=== PATIENT | male | born 1975 ===

== ENCOUNTER 2019-05-06 16:50 | Inpatient (IN) | payer BC, OTHER ==
[~2019-05-06] VITALS: Ht 182.9 cm; Wt 76.9 kg
[~2019-05-06 16:50] MED LIST: ETOMIDATE 40 MG/20 ML ONE; MIDAZOLAM 1 MG/ML, 5ML ONE; PROPOFOL 10 MG/ML, 100ML IV ONE; PROPOFOL 10 MG/ML, 20ML ONE; SUCCINYLCHOLINE 20 MG/ML, 10ML ONE; VECURONIUM 10 MG ONE
--- NOTE | 2019-05-06 17:00 | NUR ---
BIBA RESTRAINED X4 C/O AMS, AOX0- WILL NOT ANSWER STAFF QUESTIONS, WITHIN A FEW MINUTES OF ARRIVAL PT WENT FROM DROWSY & FOLLOWING SOME COMMANDS TO AGITATED, RESTLESS, UNCOOPERATIVE/COMBATIVE & PULLING AT RESTRAINTS BACK TO SLEEPING; PT CHANGED INTO GOWN, ALL PERSONAL BELONGINGS PLACED IN BAG X1 & PLACED IN LOCKER WITH PT COOLER (HANDLE BROKEN), SAFETY FREEMAN DOWN, SITTER IN VIEW. Addendum: 05/06/19 at 1731 by HAKAN BIBA RESTRAINED X4 C/O AMS, AOX0- WILL NOT ANSWER STAFF QUESTIONS, WITHIN A FEW MINUTES OF ARRIVAL PT WENT FROM DROWSY & FOLLOWING SOME COMMANDS TO AGITATED, RESTLESS, UNCOOPERATIVE/COMBATIVE & PULLING AT RESTRAINTS BACK TO SLEEPING; BG 74 SYNOPTIC METEOROLOGIST PER EMS, NO OTHER INTERVENTIONS, EMS REPORTS PT FOUND "IN THE MIDDLE OF THE FREEWAY PUNCHING A FENCE", PT DENIES DRUG/ETOH USE; PT CHANGED INTO GOWN, ALL PERSONAL BELONGINGS PLACED IN BAG X1 & PLACED IN LOCKER WITH PT COOLER (HANDLE BROKEN), SAFETY FREEMAN DOWN, SITTER IN VIEW.
[2019-05-06] MEDS ORDERED: SODIUM CHLORIDE FLUSH 10ML SYR IVF ONE (17:30)
[2019-05-06] MEDS ORDERED: LORazepam 2 MG/ML, 1ML IM ONE (17:30)
[2019-05-06] MEDS ORDERED: LORazepam 2 MG/ML, 1ML ONE (17:40)
--- NOTE | 2019-05-06 18:01 | NUR ---
PT REMAINS RESTRAINED X4, REPEATEDLY YELLING "FUCK" & WILL NOT ANSWER STAFF QUESTIONS, THRASHING ON GURNEY& UNABLE TO COMPREHEND COMMANDS FROM STAFF, PT CONTINUES TO GO FROM BEING DROWSY TO WIDE AWAKE & AGITATED, RESTLESS, UNCOOPERATIVE/COMBATIVE, PULLING AT RESTRAINTS THEN BACK TO SLEEPING- ERP AWARE; PT REMAINS IN SAFE ENVIRONMENT, SITTER IN VIEW. [facility].
[2019-05-06 18:06] LABS: ALBUMIN 4.8 g/dL (3.4-5.0); ANION GAP 10 mmol/L (5-15); BASOPHILS # (AUTO) 0.05 x10^3/uL (0-0.1); BASOPHILS % (AUTO) 0 % (0-1); CALCIUM 9.9 mg/dL (8.5-10.1); CHLORIDE 113 mmol/L (98-107); EOSINOPHILS # (AUTO) 0.05 x10^3/uL (0-0.4); EOSINOPHILS % (AUTO) 0 % (1-7); LYMPHOCYTES % (AUTO) 13 % (22-44); MD NO; MEAN CORPUSCULAR HEMOGLOBIN 31.5 pg (27.5-34.5); MEAN CORPUSCULAR HGB CONC 33.3 g/dL (33.2-36.2); MEAN CORPUSCULAR VOLUME 94.6 fL (81-97); MEAN PLATELET VOLUME 8.8 fL (7.4-10.4); MONOCYTES # (AUTO) 0.77 x10^3/uL (0.2-0.8); MONOCYTES % (AUTO) 6 % (2-9); NEUTROPHILS # (AUTO) 10.99 x10^3/uL (1.8-6.8); NEUTROPHILS % (AUTO) 81 % (42-75); PLATELET COUNT 225 x10^3/uL (130-400); RED BLOOD COUNT 5.02 x10^6/uL (4.38-5.82); RED CELL DISTRIBUTION WIDTH 12.3 % (9.4-14.8)
[2019-05-06 18:21] LABS: ALANINE AMINOTRANSFERASE 33 U/L (12-78); ALKALINE PHOSPHATASE 102 U/L (45-117); BILIRUBIN,TOTAL 0.6 mg/dL (0.2-1.0); CREATINE KINASE, TOTAL 2413 U/L (39-308); CREATININE 1.12 mg/dL (0.7-1.3); SALICYLATE LEVEL 5.1 mg/dL (2.8-20.0); TOTAL PROTEIN 7.6 g/dL (6.4-8.2)
[2019-05-06] MEDS ORDERED: MIDAZOLAM 1 MG/ML, 2ML ONE ×3 (18:26→22:57)
[2019-05-06] MEDS ORDERED: PLEASE ENTER ALLERGIES MC SCH (18:30)
[2019-05-06] MEDS ORDERED: MIDAZOLAM 1 MG/ML, 5ML IM ONE ×2 (18:30→20:30)
--- NOTE | 2019-05-06 19:08 | NUR ---
REPORT GIVEN TO DELMY
[2019-05-06] MEDS ORDERED: HALOPERIDOL 5 MG/ML ONE (19:58)
[2019-05-06] MEDS ORDERED: HALOPERIDOL 5 MG/ML IM ONE (20:00)
--- NOTE | 2019-05-06 20:15 | NUR ---
atepted to transfer pt to ct scan table for scan, pt awoke and was combative with staff and altered. security, ct staff and show card writer had to hold pt down and transfer pt to [facility] and restrain pt for staff saftey and pt saftet. pt contined to fight with staff and restraints until im meds finally took affect. pt was transfered to trauma bed 3 increased monitoring and 03/13 nursing
--- NOTE | 2019-05-06 20:25 | NUR ---
RECEIVED REPORT FROM DELMY MAHARAJ, ASSUMING CARE OF PT NOW. CONNECTED TO ALL MONITORING. PT CONINUTES TO BE IN 4 PT LEATHER RESTRAINTS AT THIS TIME. PLAN IS TO INTUBATE PT. WILL CONTINUE TO MONITOR. AWAITING FURTHER ORDERS AT THIS TIME
--- NOTE | 2019-05-06 20:32 | NUR ---
CT DELAY, PT UNCOOPERATIVE.
--- NOTE | 2019-05-06 20:52 | NUR ---
PT INTUBATED AT THIS TIME
[2019-05-06] MEDS ORDERED: PROPOFOL 100 ML IV PRN (21:04)
[2019-05-06] MEDS ORDERED: ETOMIDATE 20 MG/10 ML IV ONE (21:30)
[2019-05-06] MEDS ORDERED: SUCCINYLCHOLINE 20 MG/ML, 10ML IVPush ONE (21:30)
--- NOTE | 2019-05-06 21:39 | NUR ---
PT INTUBATED, TOLERATED WELL. UREÑA INSERTED, OG PLACED TO LOW INTERMITTENT SUC. UA COLLECTED AND SENT TO LAB. MEDICAL WRIST RESTRAINTS APPLIED. VSS AT THIS TIME. AWAITING CT
[2019-05-06 21:59] LABS: AMPHETAMINE SCREEN, URINE Negative (Negative); BARBITURATE SCREEN, URINE Negative (Negative); BENZODIAZEPINE SCREEN, URINE Positive (Negative); CANNABINOID SCREEN, URINE Positive (Negative); COCAINE SCREEN, URINE Negative (Negative); METHADONE SCREEN, URINE Negative (Negative); OPIATE SCREEN, URINE Negative (Negative)
--- NOTE | 2019-05-06 22:21 | NUR ---
UPOON LEAVING FOR CT PT BECAME VERY AGGITATED, ATTEMPTING TO PULL OUT ET TUBE. MD TO BEDSIDE, VERBAL ORDERS RECEIVED TO SEDATE. RT ACCOMPANIED TO CT. PT TOLERATED CT WELL. VSS. CURRENTLY BACK IN ROOM. WILL CONTINUE TO MONITOR
[2019-05-06] MEDS ORDERED: MIDAZOLAM 1 MG/ML, 2ML IVPush ONE (22:30)
[2019-05-06] MEDS ORDERED: VECURONIUM 10 MG IVPush ONE (22:30)
--- NOTE | 2019-05-06 22:40 | NUR ---
REPORT CALLED TO RHINA RN, PT READY FOR TRANSPORT WHEN ORDERS IN
[2019-05-06] MEDS ORDERED: HYDROmorphone 1 MG/ML, 1ML INJ IV STA (22:56)
[2019-05-06] MEDS ORDERED: HYDROmorphone 1 MG/ML, 1ML INJ ONE (22:58)
[2019-05-06] MEDS ORDERED: ACETAMINOPHEN 325 MG TABLET PO PRN (23:00)
[2019-05-06] MEDS ORDERED: LACTATED RINGERS 1,000 ML IV SCH (23:00)
[2019-05-06] MEDS ORDERED: ENOXAPARIN 40 MG/0.4 ML SQ SCH (23:00)
[2019-05-06] MEDS ORDERED: ONDANSETRON 2MG/ML, 2ML IVPush PRN (23:00)
[2019-05-06] MEDS ORDERED: MIDAZOLAM 1 MG/ML, 5ML IVPush ONE (23:00)
[2019-05-06 23:31] LABS: INTERNATIONAL NORMALIZED RATIO 0.92 (0.93-1.1); PROTHROMBIN TIME 9.7 Seconds (9.6-11.5)
[2019-05-06 23:43] LABS: FREE T4 (FREE THYROXINE) 1.31 ng/dL (0.76-1.46)
[2019-05-07] MEDS: NICOTINE 21 MG/24 HR PATCH.TD24 TD SCH (00:23)
[2019-05-07] MEDS ORDERED: LACTULOSE 20 GM/30 ML UDC NG PRN (00:30)
[2019-05-07] MEDS ORDERED: DEXTROSE 4 GM TAB.CHEW PO PRN (00:30)
[2019-05-07] MEDS ORDERED: SENNA 176 MG/5 ML ORAL SOL NG PRN (00:30)
[2019-05-07] MEDS: HEPARIN 5,000 UNITS/ML, 1ML SQ SCH ×2 (00:30→02:30)
[2019-05-07] MEDS ORDERED: DEXTROSE 50%, 50ML SYRINGE IVPush PRN (00:30)
[2019-05-07] MEDS ORDERED: GLUCAGON 1 MG IM PRN (00:30)
[2019-05-07] MEDS ORDERED: PROPOFOL 100 ML IV PRN (00:30)
[2019-05-07] MEDS ORDERED: LIDOCAINE-MPF 1%, 2ML ENDO PRN (00:30)
[2019-05-07] MEDS ORDERED: SENNA/DOCUSATE TABLET NG PRN (00:30)
[2019-05-07] MEDS ORDERED: BISACODYL 10 MG SUPP PR PRN (00:30)
[2019-05-07] MEDS ORDERED: ALBUTEROL/IPRATROPIUM 2.5MG/0.5MG, 3 ML INLINE SCH (00:30)
[2019-05-07] MEDS ORDERED: FENTANYL PF 100 MCG/2ML IVPush PRN (00:30)
[2019-05-07] MEDS ORDERED: PHARMACY MAY ADJ FOR RENAL FX MC SCH (00:30)
[2019-05-07] MEDS: PROPOFOL 100 ML IV PRN ×6 (01:25→22:17)
[2019-05-07 01:29] LABS: INTERNATIONAL NORMALIZED RATIO 0.93 (0.93-1.1); PROTHROMBIN TIME 9.8 Seconds (9.6-11.5)
[2019-05-07 01:31] LABS: SALICYLATE LEVEL 5.5 mg/dL (2.8-20.0); TRIGLYCERIDES 115 mg/dL (50-200)
[2019-05-07 01:37] LABS: TROPONIN I < 0.015 ng/mL (0.000-0.045)
[2019-05-07 03:20] LABS: MICROSCOPIC AUTO
[2019-05-07 03:22] LABS: CULTURE INDICATED? NO
[2019-05-07] MEDS: DEXMEDETOMIDINE 200 MCG in SODIUM CHLORIDE 0.9% 48 ML IV PRN ×4 (03:25→16:52)
[2019-05-07 04:00] VITALS: BP 123/79
[2019-05-07 04:34] LABS: BASOPHILS # (AUTO) 0.06 x10^3/uL (0-0.1); BASOPHILS % (AUTO) 1 % (0-1); EOSINOPHILS # (AUTO) 0.06 x10^3/uL (0-0.4); EOSINOPHILS % (AUTO) 1 % (1-7); LYMPHOCYTES # (AUTO) 2.21 x10^3/uL (1-3.4); LYMPHOCYTES % (AUTO) 18 % (22-44); MD NO; MEAN CORPUSCULAR HEMOGLOBIN 31.1 pg (27.5-34.5); MEAN CORPUSCULAR HGB CONC 32.9 g/dL (33.2-36.2); MEAN CORPUSCULAR VOLUME 94.6 fL (81-97); MEAN PLATELET VOLUME 9.1 fL (7.4-10.4); MONOCYTES # (AUTO) 1.08 x10^3/uL (0.2-0.8); MONOCYTES % (AUTO) 9 % (2-9); NEUTROPHILS # (AUTO) 9.06 x10^3/uL (1.8-6.8); NEUTROPHILS % (AUTO) 73 % (42-75); PLATELET COUNT 212 x10^3/uL (130-400); RED BLOOD COUNT 5.12 x10^6/uL (4.38-5.82); RED CELL DISTRIBUTION WIDTH 12.8 % (9.4-14.8)
[2019-05-07 04:44] LABS: ALBUMIN 4.2 g/dL (3.4-5.0); ANION GAP 12 mmol/L (5-15); CALCIUM 8.8 mg/dL (8.5-10.1); CHLORIDE 113 mmol/L (98-107)
[2019-05-07 05:14] LABS: ALANINE AMINOTRANSFERASE 43 U/L (12-78); ALKALINE PHOSPHATASE 100 U/L (45-117); BILIRUBIN,TOTAL 0.4 mg/dL (0.2-1.0); CREATINE KINASE, TOTAL 8629 U/L (39-308); CREATININE 1.04 mg/dL (0.7-1.3); TOTAL PROTEIN 7.2 g/dL (6.4-8.2)
[2019-05-07 07:00] LABS: TROPONIN I < 0.015 ng/mL (0.000-0.045)
[2019-05-07] MEDS ORDERED: INSULIN LISPRO 100 UNITS/ML, PEN SQ-INSULIN SCH (07:00)
[2019-05-07] MEDS: D5%-0.9% NACL 1,000 ML IV SCH (10:14)
[2019-05-07] MEDS: SODIUM CHLORIDE FLUSH 10ML SYR IVF SCH ×2 (10:15→21:05)
[2019-05-07] MEDS: FAMOTIDINE 20 MG/2 ML IVPush SCH ×2 (10:41→21:05)
[2019-05-07] MEDS: ALBUTEROL/IPRATROPIUM 2.5MG/0.5MG, 3 ML INLINE SCH ×4 (11:00→22:47)
[2019-05-07] MEDS: INSULIN LISPRO 100 UNITS/ML, PEN SQ-INSULIN SCH ×2 (15:00→21:00)
[2019-05-07] MEDS ORDERED: SODIUM CHLORIDE 0.9%, 500ML IVBOLUS ONE (17:00)
[2019-05-07] MEDS ORDERED: SODIUM CHLORIDE 0.9% 1,000ML IVBOLUS ONE (20:00)
[2019-05-07] MEDS: MIDAZOLAM HCL 50 MG in SODIUM CHLORIDE 0.9% 40 ML IV PRN (21:06)
[2019-05-08] MEDS: HEPARIN 5,000 UNITS/ML, 1ML SQ SCH ×3 (00:08→17:51)
[2019-05-08] MEDS: NICOTINE 21 MG/24 HR PATCH.TD24 TD SCH (00:08)
[2019-05-08] MEDS: HYDROmorphone 2 MG/ML, 1ML IVPush PRN ×2 (00:08→03:55)
[2019-05-08] MEDS: PROPOFOL 100 ML IV PRN ×4 (01:10→21:42)
[2019-05-08] MEDS: MIDAZOLAM HCL 50 MG in SODIUM CHLORIDE 0.9% 40 ML IV PRN ×2 (01:21→05:22)
[2019-05-08] MEDS: ALBUTEROL/IPRATROPIUM 2.5MG/0.5MG, 3 ML INLINE SCH ×6 (02:43→23:00)
[2019-05-08] MEDS: INSULIN LISPRO 100 UNITS/ML, PEN SQ-INSULIN SCH ×4 (03:00→20:53)
[2019-05-08 04:00] VITALS: BP 107/64
[2019-05-08 05:10] LABS: BASOPHILS # (AUTO) 0.01 x10^3/uL (0-0.1); BASOPHILS % (AUTO) 0 % (0-1); EOSINOPHILS # (AUTO) 0.02 x10^3/uL (0-0.4); EOSINOPHILS % (AUTO) 0 % (1-7); LYMPHOCYTES # (AUTO) 1.21 x10^3/uL (1-3.4); LYMPHOCYTES % (AUTO) 13 % (22-44); MD NO; MEAN CORPUSCULAR HGB CONC 32.8 g/dL (33.2-36.2); MEAN CORPUSCULAR VOLUME 94.5 fL (81-97); MEAN PLATELET VOLUME 9.2 fL (7.4-10.4); MONOCYTES # (AUTO) 0.77 x10^3/uL (0.2-0.8); MONOCYTES % (AUTO) 9 % (2-9); NEUTROPHILS # (AUTO) 7.07 x10^3/uL (1.8-6.8); NEUTROPHILS % (AUTO) 78 % (42-75); PLATELET COUNT 141 x10^3/uL (130-400); RED CELL DISTRIBUTION WIDTH 12.5 % (9.4-14.8)
[2019-05-08 05:25] LABS: ALBUMIN 3.3 g/dL (3.4-5.0); ANION GAP 4 mmol/L (5-15); CALCIUM 8.1 mg/dL (8.5-10.1); CHLORIDE 119 mmol/L (98-107)
[2019-05-08 05:42] LABS: ALANINE AMINOTRANSFERASE 37 U/L (12-78); ALKALINE PHOSPHATASE 77 U/L (45-117); BILIRUBIN,TOTAL 0.6 mg/dL (0.2-1.0); CREATININE 0.95 mg/dL (0.7-1.3); TOTAL PROTEIN 5.8 g/dL (6.4-8.2)
[2019-05-08 06:08] LABS: CREATINE KINASE, TOTAL 4555 U/L (39-308)
[2019-05-08] MEDS ORDERED: POTASSIUM CHLORIDE 10% 40 MEQ/30 ML UDC PO ONE (06:30)
[2019-05-08] MEDS: D5%-0.9% NACL 1,000 ML IV SCH ×2 (07:45→20:49)
[2019-05-08] MEDS: FAMOTIDINE 20 MG/2 ML IVPush SCH ×2 (09:29→20:49)
[2019-05-08] MEDS: SODIUM CHLORIDE FLUSH 10ML SYR IVF SCH ×2 (09:29→20:50)
[2019-05-08] MEDS: FENTANYL PF 1,000 MCG in SODIUM CHLORIDE 0.9% 80 ML IV PRN (10:01)
--- NOTE | 2019-05-08 10:32 | NUR ---
TF goal rate: Promote @ 80 ml/hour on propofol and 85 ml/hour off propofol
[2019-05-08] MEDS ORDERED: ACETAMINOPHEN 650 MG/20.3 ML UDC PO/NG PRN (19:00)
[2019-05-09] MEDS: NICOTINE 21 MG/24 HR PATCH.TD24 TD SCH ×2 (00:31→21:50)
[2019-05-09] MEDS: HEPARIN 5,000 UNITS/ML, 1ML SQ SCH ×2 (00:31→08:13)
[2019-05-09] MEDS: FENTANYL PF 1,000 MCG in SODIUM CHLORIDE 0.9% 80 ML IV PRN (00:54)
[2019-05-09] MEDS: PROPOFOL 100 ML IV PRN ×2 (02:22→05:42)
[2019-05-09] MEDS: ALBUTEROL/IPRATROPIUM 2.5MG/0.5MG, 3 ML INLINE SCH (02:29)
[2019-05-09] MEDS: INSULIN LISPRO 100 UNITS/ML, PEN SQ-INSULIN SCH ×2 (03:00→08:13)
[2019-05-09 03:50] VITALS: BP 118/81
[2019-05-09 04:38] LABS: BASOPHILS # (AUTO) 0.02 x10^3/uL (0-0.1); BASOPHILS % (AUTO) 0 % (0-1); EOSINOPHILS # (AUTO) 0.05 x10^3/uL (0-0.4); EOSINOPHILS % (AUTO) 1 % (1-7); LYMPHOCYTES # (AUTO) 1.02 x10^3/uL (1-3.4); LYMPHOCYTES % (AUTO) 11 % (22-44); MD NO; MEAN CORPUSCULAR HEMOGLOBIN 31.3 pg (27.5-34.5); MEAN CORPUSCULAR HGB CONC 33.4 g/dL (33.2-36.2); MEAN CORPUSCULAR VOLUME 93.9 fL (81-97); MEAN PLATELET VOLUME 9.2 fL (7.4-10.4); MONOCYTES # (AUTO) 0.72 x10^3/uL (0.2-0.8); MONOCYTES % (AUTO) 8 % (2-9); NEUTROPHILS # (AUTO) 7.57 x10^3/uL (1.8-6.8); NEUTROPHILS % (AUTO) 81 % (42-75); PLATELET COUNT 115 x10^3/uL (130-400); RED BLOOD COUNT 4.02 x10^6/uL (4.38-5.82); RED CELL DISTRIBUTION WIDTH 12.6 % (9.4-14.8)
[2019-05-09 04:44] LABS: CALCIUM 8.1 mg/dL (8.5-10.1); CHLORIDE 116 mmol/L (98-107); CREATININE 0.67 mg/dL (0.7-1.3)
[2019-05-09 04:53] LABS: ANION GAP 6 mmol/L (5-15)
[2019-05-09] MEDS ORDERED: D5%-0.45% NACL 1,000 ML IV SCH (07:00)
[2019-05-09] MEDS: SODIUM CHLORIDE FLUSH 10ML SYR IVF SCH ×2 (08:13→21:50)
[2019-05-09] MEDS: FAMOTIDINE 20 MG/2 ML IVPush SCH (08:13)
[2019-05-09] MEDS ORDERED: ENOXAPARIN 40 MG/0.4 ML SQ SCH (13:00)
[2019-05-10 01:58] VITALS: BP 130/87
[2019-05-10 05:39] LABS: BASOPHILS # (AUTO) 0.02 x10^3/uL (0-0.1); BASOPHILS % (AUTO) 0 % (0-1); EOSINOPHILS # (AUTO) 0.11 x10^3/uL (0-0.4); EOSINOPHILS % (AUTO) 2 % (1-7); LYMPHOCYTES # (AUTO) 1.06 x10^3/uL (1-3.4); LYMPHOCYTES % (AUTO) 16 % (22-44); MD NO; MEAN PLATELET VOLUME 9.1 fL (7.4-10.4); MONOCYTES # (AUTO) 0.54 x10^3/uL (0.2-0.8); MONOCYTES % (AUTO) 8 % (2-9); NEUTROPHILS # (AUTO) 5.05 x10^3/uL (1.8-6.8); NEUTROPHILS % (AUTO) 75 % (42-75); PLATELET COUNT 126 x10^3/uL (130-400); RED CELL DISTRIBUTION WIDTH 12.4 % (9.4-14.8)
[2019-05-10 05:40] LABS: ANION GAP 9 mmol/L (5-15); CALCIUM 8.8 mg/dL (8.5-10.1); CHLORIDE 110 mmol/L (98-107)
[2019-05-10 05:41] LABS: CREATININE 0.65 mg/dL (0.7-1.3); TRIGLYCERIDES 120 mg/dL (50-200)
[2019-05-10 06:50] VITALS: BP 145/80
[2019-05-10] MEDS: SODIUM CHLORIDE FLUSH 10ML SYR IVF SCH (10:25)
== END 2019-05-10 17:27 | disposition home or self-care (01) | DRG 917 ==
LOC: SUATTDRO 22:39 → ED 22:47 → EDIP 23:08 → CCU 23:15 → 3N 05-09 19:42
PROVIDERS: ADMIT Hospitalist; ATTEND Internal Medicine
PROC: 5A1945Z Respiratory Ventilation, 24-96 Consecutive Hours (ICD-10-PCS; principal; 2019-05-06)
PROC: 0BH17EZ Insertion of Endotracheal Airway into Trachea, Via Natural or Artificial Opening (ICD-10-PCS; 2019-05-06)
PROC: 0T9B70Z Drainage of Bladder with Drainage Device, Via Natural or Artificial Opening (ICD-10-PCS; 2019-05-07)
DX: T42.8X1A Poisoning by antiparkinsonism drugs and other central muscle-tone depressants, accidental (unintentional), initial encounter (principal); G93.41 Metabolic encephalopathy; J96.00 Acute respiratory failure, unspecified whether with hypoxia or hypercapnia; J13 Pneumonia due to Streptococcus pneumoniae; M62.82 Rhabdomyolysis; Z99.11 Dependence on respirator [ventilator] status; F17.210 Nicotine dependence, cigarettes, uncomplicated; F12.90 Cannabis use, unspecified, uncomplicated; D72.829 Elevated white blood cell count, unspecified; Z91.83 Wandering in diseases classified elsewhere; Z80.1 Family history of malignant neoplasm of trachea, bronchus and lung; Y92.89 Other specified places as the place of occurrence of the external cause
CPT/HCPCS: 30901; 36415; 36600; 84145; 99291; 99292; J3490; J7042; J7620; 70450; 71045; 80048; 80053; 80074; 80307; 81001; 82140; 82550; 82803; 82962; 83605; 83735; 84100; 84439; 84443; 84478; 84484; 85025; 85610; 85730; 87070; 87081; 87184; 87205; 93005; 93306; 94002; 94003; 94150; 94640; G0378; J1170; J1644; J1650; J2250; J2704; J3010; J0330; J1630; J2060; J7030; J7040; J7120